=== PATIENT | female | born 1960 | race Caucasian/White ===

== ENCOUNTER → 2020-05-03 | Outpatient (CLI) | payer OTHER ==
--- NOTE | 2020-05-04 19:38 | Diagnostic Imaging Report ---
EXAM: Digital mammogram bilateral screening COMPARISON: This study was compared to the prior exam of 01/10/2019. There are no current complaints. FINDINGS: The breasts are predominantly fatty. When compared to the prior study, there has been no significant change. There is no primary or secondary sign of malignancy noted. IMPRESSION: 1. There is no evidence for malignancy. 2. The patient should have her annual bilateral screening mammogram on schedule in April 2021. ACR BI-RADS Category 1: Negative. Result letter will be mailed to the patient. Note: At least 10% of breast cancer is not imaged by mammography. Dictated by: Dictated on workstation # [id number]
== END ==
LOC: RAD 11:00
PROVIDERS: ATTEND Obstetrics & Gynecology
DX: Z12.31 Encounter for screening mammogram for malignant neoplasm of breast (principal)
CPT/HCPCS: 77063; 77067

== ENCOUNTER → 2020-07-30 | Outpatient (CLI) | payer BC | LOC: CARD 14:00 | PROVIDERS: ATTEND Internal Medicine Cardiovascular Disease | DX: R00.2 Palpitations (principal) | CPT/HCPCS: 93306 ==

== ENCOUNTER → 2020-08-16 | Outpatient (CLI) | payer BC ==
[~2020-08-16] VITALS: Ht 167 cm; Wt 84.0 kg
[~2020-08-16] MED LIST: REGADENOSON 0.4 MG/5 ML SYR (LEXISCAN) IV ONE
[2020-08-16] MEDS: CATHETER FLUSH 10 ML SYR IV PRN ×2 (07:59→09:12)
[2020-08-16 09:11] VITALS: BP 137/78
--- NOTE | 2020-08-16 11:45 | Cardiology Stress Test Report ---
Stress Test Report Date of Procedure/Referring: Date of Procedure: Aug 16, 2020 PCP Dede Frost MD Admitting Physician Salud Ventura DO Indications: Palpitation Baseline Heart Rate: 65 Baseline Blood Pressure: Blood Pressure Systolic: 137 Blood Pressure Diastolic: 78 Baseline Vitals Vital Signs Date Time Temp Pulse Resp B/P (MAP) Pulse Ox O2 Delivery O2 Flow Rate FiO2 08/16/20 09:11 5 137/78 (97) 98 Baseline EKG: Baseline EKG: NSR Summary After explaining the procedure to the patient, she signed a consent and then brought to the stress nuclear laboratory. Patient received 0.4 mg Lexiscan for stress test, ECG, heart rate and blood pressure were monitored continuously. Resting and stress dose of radio tracer were injected, imaging was acquired and reviewed in short axis, horizontal long axis and vertical long axis views. TID: 1.02 SSS: 3 SDS: 2 EF: 62 1. Patient tolerated Lexiscan well 2. Breast attenuation with no significant ischemia or infarction on SPECT images 3. Normal left ventricular size, EF 62 percent DEDE FROST MD Aug 16, 2020 11:45
== END ==
LOC: CARD 08:00
PROVIDERS: ATTEND Internal Medicine Cardiovascular Disease
DX: R00.2 Palpitations (principal)
CPT/HCPCS: 78452; 93017; A9502

== ENCOUNTER → 2021-05-13 | Outpatient (CLI) | payer MEDICARE ==
[~2021-05-13] MED LIST changes: +CATHETER FLUSH 10 ML SYR IV PRN; +HOLD METFORMIN - RECEIVED CONTRAST 20 ML VIAL IV SCH; +IOHEXOL 350 MG/ML 150 ML (OMNIPAQUE 350) VIAL IV ONE; +NS 100 ML (IVPB) BAG IV ONE; -REGADENOSON 0.4 MG/5 ML SYR (LEXISCAN) IV ONE
[2021-05-13 09:53] LABS: CREATININE SERUM 0.76 MG/DL (0.60-1.30)
--- NOTE | 2021-05-13 16:54 | Diagnostic Imaging Report ---
INDICATION: Peripheral vascular disease. TECHNIQUE: CTA of the aorta and lower extremities was performed with IV contrast bolus and axial slices and sagittal and coronal MIP reconstructions. Dose reduction protocol was used. COMPARISON: There is no prior study for comparison. FINDINGS: The visualized portions of the lung bases are clear. There were no pleural fluid collections. There is no free intraperitoneal air. The liver and gallbladder appear unremarkable. The spleen, adrenals, and pancreas are normal. Kidneys bilaterally are unremarkable. There is no retroperitoneal mass or adenopathy. There is no ascites or abnormal fluid collection. Visualized bowel loops appear unremarkable. CTA images demonstrate the abdominal aorta to be patent; there is some peripheral plaquing in the aorta but no evidence of aneurysm or dissection. There does not appear to be significant aortic stenosis. The celiac trunk and SMA are patent and without stenosis. There is minor plaquing in the renal arteries, without significant stenosis. The inferior mesenteric artery is patent. On the left side, there is plaquing in the common iliac artery with high-grade stenosis in its mid portion. The left internal and external iliac arteries are patent with diffuse plaquing in the external iliac with about 40-50% diameter stenosis. The right common iliac artery shows diffuse plaquing with high-grade stenosis at its origin of greater than 80%. The right internal and external iliac arteries are patent; there is some plaquing in the right external iliac artery proximally, but this does not cause significant narrowing. The common femoral arteries show posterior plaquing on both sides with less than 50% diameter stenosis. The profunda femoris arteries are patent on both sides. The SFA is patent on both sides with some areas of minor plaquing, but no significant SFA stenosis was seen. Popliteal arteries are patent on both sides and without significant stenosis. Trifurcations are patent. The anterior tibial arteries and peroneal arteries on both sides appear patent. The posterior tibial artery on the left side is patent, and the posterior tibial artery on the right side is occluded throughout. IMPRESSION: Peripheral vascular disease as described above. There is plaquing in the aorta without evidence of significant aortic stenosis. There is extensive calcified plaquing in the common iliac arteries on both sides with high-grade stenosis of the right common iliac origin and of the left common iliac artery at its mid portion. There is moderate plaquing in the external iliac arteries and common femoral arteries without high-grade stenosis. There is minor plaquing in the SFAs on both sides. The right posterior tibial artery is occluded. There are no other significant incidental findings. Dictated by: Dictated on workstation # [id number]
== END ==
LOC: RAD 10:15
PROVIDERS: ATTEND Internal Medicine Cardiovascular Disease
DX: I70.0 Atherosclerosis of aorta (principal); I70.8 Atherosclerosis of other arteries; I70.213 Atherosclerosis of native arteries of extremities with intermittent claudication, bilateral legs
CPT/HCPCS: 36415; 82565; 84520

== ENCOUNTER 2021-06-03 09:00 | Day surgery (SDC) | payer MEDICARE ==
[~2021-06-03] VITALS: Ht 167.6 cm; Wt 91.8 kg
[2021-06-03] VITALS (22 sets, daily range): BP systolic 108–153; BP diastolic 42–78
[2021-06-03] MEDS: NS IV 1000 ML 1,000 ML IV SCH ×4 (07:20→19:45)
[2021-06-03 07:25] LABS: HEMATOCRIT 43 % (35-52); HEMOGLOBIN 14.3 g/dL (11.5-16.0); MEAN CORPUSCULAR HEMOGLOBIN 33 pg (25-34); MEAN CORPUSCULAR HGB CONC 33 g/dL (32-36); MEAN CORPUSCULAR VOLUME 101 fL (80-99); MEAN PLATELET VOLUME 9.3 fL (9.0-12.2); PLATELET COUNT 226 10^3/uL (130-400); WHITE BLOOD COUNT 5.2 10^3/uL (4.3-11.0)
--- NOTE | 2021-06-03 07:26 | Diagnostic Imaging Report ---
INDICATION: Shortness of breath COMPARISONS: None FINDINGS: Single view of the chest shows normal heart, pulmonary vasculature, pleura and diaphragms. No focal opacities. Soft tissues and bony thorax are normal. IMPRESSION: No acute cardiopulmonary changes. Dictated by: Dictated on workstation # [id number]
[2021-06-03 07:37] LABS: INR 0.8 (0.8-1.4); PROTHROMBIN TIME PATIENT 11.7 SEC (12.2-14.7)
[2021-06-03 07:57] LABS: ALBUMIN 4.2 GM/DL (3.2-4.5); BILIRUBIN,TOTAL 0.4 MG/DL (0.1-1.0); CALCIUM 9.4 MG/DL (8.5-10.1); CREATININE SERUM 0.7 MG/DL (0.60-1.30); POTASSIUM 3.9 MMOL/L (3.6-5.0); TOTAL PROTEIN 7.6 GM/DL (6.4-8.2)
[~2021-06-03 09:00] MED LIST changes: +ACET325T38 PO; +ALPR0.5T7 PO; +ASPI-1238 PO; -CATHETER FLUSH 10 ML SYR IV PRN; +CLOP75TA28 PO; +ESTR0.5T3 PO; +FISH OIL PO; +HEParin (CATH LAB) 2,000 ML IV ONE; -HOLD METFORMIN - RECEIVED CONTRAST 20 ML VIAL IV SCH; -IOHEXOL 350 MG/ML 150 ML (OMNIPAQUE 350) VIAL IV ONE; +LIDOCAINE 1% INJ 20 ML 20 ML VIAL ONE; +LOVA20TA2 PO; +MIDAZOLAM 5 MG/5 ML (VERSED) VIAL ONE; +NIFE-25 PO; -NS 100 ML (IVPB) BAG IV ONE; +NS IV 1000 ML 1,000 ML ONE; +OMG1KC PO; +[UNRECOGNIZED DRUG - CODE] PO; +fentaNYL INJ 100 MCG/2 ML AMP ONE
[2021-06-03] MEDS ORDERED: NITRO DRIP 25000 MCG/D5W 0 ML IV ONE (09:03)
[2021-06-03] MEDS ORDERED: HEParin 1000 UNIT/ML (10ML VIAL) FOR BOLUS ONE (09:03)
--- NOTE | 2021-06-03 09:41 | Conscious Sedation/ASA ---
Conscious Sedation Pre-Proced Time 08:00 ASA Score 3 For ASA 3 and 4: Consider anesthesia and medical clearance. Also, for patients with a history of failed moderate sedation consider anesthesia. Airway Lungs Heart ASA score ASA 1: a normal healthy patient ASA 2: a patient with a mild systemic disease (mid diabetes, controlled hypertension, obesity x ASA 3: a patient with a severe systemic disease that limits activity (angina, COPD, prior Myocardial infarction) ASA 4: a patient with an incapacitating disease that is a constant threat to life (CHF, renal failure) ASA 5: a moribund patient not expected to survive 24 hrs. (ruptured aneurysm) ASA 6: a declared brain- patient whose organs are being harvested. For emergent operations, add the letter E after the classification Mallampati Classification Grade 3 Sedation Plan Analgesia, Amnesia, Plan communicated to team members, Discussed options with patient/fam, Discussed risks with patient/fam The patient is an appropriate candidate to undergo the planned procedure, sedation, and anesthesia. The patient immediately re-assessed prior to indication. DEDE SMITH MD Jun 03, 2021 09:40
[2021-06-03] MEDS ORDERED: CLOPIDOGREL 300 MG (PLAVIX) TABLET PO ONE (09:43)
[2021-06-03] MEDS ORDERED: ASPIRIN 325 MG (5 GR) TABLET ONE (09:43)
[2021-06-03] MEDS ORDERED: PATIENT MAY USE OWN MEDS, ALL PO SCH (09:45)
--- NOTE | 2021-06-03 09:50 | Peripheral Report ---
Peripheral Report Physician (s)/Automation Qa Lead (s) Physician DEDE SMITH MD Pre-Procedure Diagnosis Pre-Procedure Diagnosis: Peripheral arterial disease Post-Procedure Note Procedure Start Date: Jun 03, 2021 Name of Procedure: Catheter placement in the abdominal aorta Selective bilateral lower extremities runoff Kissing bilateral iliac stent deployment Findings/Procedure Note PROCEDURE NOTE: 61-year-old lady with a history of radiation to the pelvic area, has been having claudication, underwent CT angiogram of her lower extremities which showed severe bilateral iliac stenosis. She was scheduled for peripheral angiogram possible angioplasty. After explaining the procedure to the patient, all pros and cons were explained, all questions were answered. The patient signed the consent and then she was placed on the cardiac catheterization laboratory. The patient was placed on the cardiac catheterization laboratory. Groin was prepped SL fashion local anesthesia was used. Sheath placed in the right femoral artery, I was unable to advance the J-wire through the iliac artery I used a S torq wire and was able to cross the lesion then pigtail catheter was placed in the lower abdominal aorta just above the bifurcation and I did angiogram to the bifurcation which showed severe bilateral iliac stenosis. Then I did the runoff to the right lower extremity through the sheath. Then I prepped the left groin and placed a 6 [place] sheath at the left femoral artery. And I had difficulty advancing the wire through the iliac artery on the left also due to heavy calcification and obstructive disease. I used a Storq wire then I used kissing balloon using bilateral [place] balloon 6 x 80 on the left and 6 x 60 on the right. After one inflation I proceeded with deployment of bilateral kissing Omnilink Elite stent 7 x 39. Stent deployed at nominal, the pigtail was placed back in the abdominal aorta and abdominal aortogram was done in 2 phases and reevaluated the area and appeared to have significant improvement. At the end of the procedure both sheaths were removed and closure device deployed. During the procedure there were an Omnilink stent 7 x 59 was introduced and I felt that it was too long and I removed it without deploying it and at the beginning of the procedure I used [place] 6 x 100 balloon and I felt that it was too long and I did not deploy or use that balloon but it was introduced in the iliac artery. FINDINGS: Right lower extremity: Severe right common iliac stenosis, heavily calcified, mild to moderate disease in the common femoral artery and good flow down to the trifurcation with no obstructive disease in the SFA, popliteal artery or below the knee. Left lower extremity: Heavily calcified artery with severe iliac stenosis, moderate disease in the common femoral artery then with the runoff down to the trifurcation there was mild disease in the left SFA and good flow in the arteries below the knee. Post deployment of Omnilink kissing stent, angiogram showed excellent result with excellent flow with no obstructive disease CONCLUSIONS: 1. Severe bilateral iliac stenosis, heavily calcified successful balloon angioplasty then deployment of kissing iliac stents bilaterally 7x39 Omnilink Elite with excellent results 2. Mild disease in the SFA with nonobstructive disease down to the trifurcation bilaterally DISCUSSION AND RECOMMENDATIONS: Continue on aspirin and Plavix, continue on statin. Follow-up as an outpatient Anesthesia Type: Conscious Sedation Estimated blood loss (mL): 35 ml Contrast Amount: 50 ml Total Radiation Dose: 377 mGy Post-Procedure Diagnosis Post-operative diagnosis: Claudication Peripheral arterial disease Hypertension Hyperlipidemia DEDE SMITH MD Jun 03, 2021 09:50
[2021-06-03] MEDS ORDERED: PANT40SU PO (09:51)
--- NOTE | 2021-06-03 09:52 | Discharge Inst-Post CATH ---
Discharge Inst-CATH/EP Problems Reviewed?: Yes Post Cardiac Cath/EP D/C Inst Follow Up/Plan Appointment with Dr. Frost's office in 2 to 4 weeks <b>CARDIAC CATH/EP PROCEDURE DISCHARGE INSTRUCTIONS</b> ACTIVITY * Go Home directly and rest. * Limit activity of the leg (or wrist if it was used) for 7 days including aer obics, swimming, jogging, bicycling, etc. * Restrict stair-climbing for 7 days if possible, if not, climb up with your non-cath leg, then bring together on the same step. * Avoid lifting, pushing, pulling or excessive movement of the affected extremi ty for 7 days. * Customary sexual activity may be resumed after 2 days-use caution not to use a position that strains or causes pain to the affected extremity. * No driving for 24 hours. * NO SMOKING. * Avoid straining for bowel movements for 7 days. * Gentle walking on level ground is allowed. * Returning to work will depend on the type of procedure and the results. Your doctor will discuss this with you. CALL YOUR DOCTOR FOR ANY OF THE FOLLOWING: *If bleeding from the puncture site occurs- Apply gentle pressure to site with clean cloth and call your doctor or EMS. * If a knot or lump forms under the skin, increases in size, or causes pain. * If bruising appears to be worsening or moving further down your leg instead of disappearing. * Temperature above 101 F. CARE OF YOUR GROIN INCISION; * Bruising or purple discoloration of the skin near the puncture site is common. * You may shower only, no bathtub bathing for 5 days. Be careful to avoid slipping as your leg may feel stiff. * If a closure device was used on your femoral artery, please see the attached guide regarding care of the device and your leg. * Leave dressing on FOR 24 hours. CARE OF YOUR WRIST INCISION; * Bruising or purple discoloration of the skin near the puncture site is common. * You may shower. * DO NOT submerge wrist. * Leave dressing on FOR 24 hours. DEDE FROST MD Jun 03, 2021 09:52
[2021-06-03] MEDS: ACETAMINOPHEN 325 MG TABLET PO PRN ×2 (16:27→21:42)
[2021-06-03] MEDS ORDERED: ASPIRIN E.C. 81 MG (ECOTRIN) TAB PO SCH (21:00)
[2021-06-03] MEDS ORDERED: ALPRAZolam 0.5 MG (XANAX) TAB PO SCH (21:00)
[2021-06-03] MEDS ORDERED: FISH OIL 2000 MG PO SCH (21:00)
[2021-06-03] MEDS ORDERED: CLOPIDOGREL 75 MG (PLAVIX) TABLET PO SCH (21:00)
[2021-06-03] MEDS ORDERED: MECOBALAMIN 5000 MCG PO SCH (21:00)
[2021-06-03] MEDS ORDERED: NIFEdipine ER 30 MG (PROCARDIA XL) TAB PO SCH (21:00)
[2021-06-03] MEDS ORDERED: NON-FORMULARY MEDICATION 1 EA EA (Lovastatin 40 MG) PO SCH (21:00)
[2021-06-03] MEDS ORDERED: SIMvastatin 20 MG (ZOCOR) TAB PO SCH (21:00)
[2021-06-03] MEDS ORDERED: NON-FORMULARY MEDICATION 1 EA EA (Estradiol (Estrace Tablet) 0.5 MG) PO SCH (21:00)
[2021-06-03] MEDS ORDERED: OMEGA 3 (FISH OIL) 1000 MG CAP PO SCH (21:00)
[2021-06-03] MEDS ORDERED: ESTRADIOL 1 MG TAB (ESTRACE) PO SCH (21:00)
[2021-06-04] VITALS: BP 133/87
[2021-06-04] MEDS: NS IV 1000 ML 1,000 ML IV SCH ×2 (03:00→05:45)
[2021-06-04 04:00] VITALS: BP 121/75
[2021-06-04 08:00] VITALS: BP 131/64
--- NOTE | 2021-06-04 09:11 | Discharge Summary ---
Diagnosis/Chief Complaint Date of Admission 06/03/2021 Date of Discharge 05/27/2021 Discharge Date: Jun 04, 2021 Discharge Time: 10:00 Admission Diagnosis Admission Diagnosis Claudication Discharge Diagnosis Peripheral arterial disease with claudication. Status post bilateral iliac artery stents. Primary hypertension. Mixed hyperlipidemia. Obesity. BMI 33. Reason Hospital Visit Claudication. Discharge Summary Hospital Course Was the Problem List Reviewed?: Yes Hospital Course See discussion below. Labs Laboratory Tests 06/03/21 07:17: Mean Corpuscular Volume 101H, Prothrombin Time 11.7L, Cholesterol Level 217H, HDL Cholesterol 94H Procedures Peripheral angiogram with stenting. Discharge Physical Examination Allergies: Coded Allergies: No Known Drug Allergies (Unverified , 08/16/20) Vitals & I&Os Vital Signs Date Time Temp Pulse Resp B/P (MAP) Pulse Ox O2 Delivery O2 Flow Rate FiO2 06/04/21 08:00 36.0 79 18 131/64 (86) 95 Room Air General: Alert. No acute distress. She is obese. Eye: No xanthelasma. HENT: Normocephalic. Neck: Jugular venous pressure does not appear elevated. Respiratory: Lungs are clear to auscultation. Respirations are non-labored. Breath sounds are equal. Symmetrical chest wall expansion. Cardiovascular: Normal rate. Regular rhythm. No murmur. No gallop. No edema. Gastrointestinal: Soft. Normal bowel sounds. Skin: Warm. Dry. Neurologic: Alert and oriented to person, place, time. Cranial nerves 3-11 grossly intact. Psychiatric: Cooperative. Appropriate mood & affect. Discussion & Recommendations She presented to the hospital for outpatient peripheral angiogram. She was found to have severe bilateral disease of the iliac arteries and received stents. The following day she was doing well without any claudication. She denied chest discomfort, dyspnea, palpitations, syncope, or lower extremity edema. Her bilateral femoral arterial access sites were without ecchymoses or hematoma. She was discharged home on her previous outpatient medications. She is scheduled for a follow-up in our office in the next couple of weeks with Dr. Frost. Certain portions of this document may have been dictated utilizing voice recognition technology. Inherent to this technology, typographical and grammatical errors may exist. As much as I am diligent to identify and correct these mistakes, some errors may remain in the document. Discharge Home Medications Reviewed and agree with Discharge Medication list on patient's Discharge Instruction sheet Condition at Discharge Improved. Instructions to Patient/Family Please see electronic discharge instructions given to patient. Clinical Quality Measures End of Life/Advance Care Plan: Advance Care discuss with: patient Admission Status Admission Status: Other (Same Day Surgery) DVT/VTE Risk/Contraindication: VTE Addressed: Yes VTE Present on Admission: No MARGARITO VEGA JR, MD Jun 04, 2021 09:11
--- OUTSIDE RECORDS SUMMARY | 2021-06-06 10:56 | XMS REPORT | CCD ---
Author Sydnie Odraz Organization Yanna Zarco MD, [facility] Address [address] [place] [address] Phone Care Team Providers Care It Security Administrator Name Role Phone PP Unavailable CCM Unavailable Summary Purpose Interface Exchange Insurance Providers Payer name Policy type / Coverage type Covered libertarian ID Effective Begin Date Effective End Date [place] [employer] [facility] Blue Cross/[facility] [id number] Unknown Unknown Family history Mother Diagnosis Age At Onset No Known Diseases N/A Father Diagnosis Age At Onset No Known Diseases N/A Social History Social History Element Codes Description Effective Dates Marital status Unknown 200807/19/2020 Number of children Unknown 1 adopted a baby in [place]307/19/2020 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/[address]: 5387776 Quit less than 5 years ago Alcohol history Unknown occasionally drinks alcohol wine 07/19/2020 Allergies, Adverse Reactions, Alerts Substance Reaction Codes Entered Date Inactivated Date Status CODEINE headache, Unknown 07/19/2020 No Inactive Date Active hydrocodone headache Unknown 07/19/2020 No Inactive Date Active Problems Condition Codes Effective Dates Condition Status Cancer Unknown 07/19/2020 Active Hyperlipidemia Unknown 07/19/2020 Active Hypothryroidism Unknown 07/19/2020 Active Lymphedema Unknown 07/19/2020 Active Generalized anxiety disorder ICD-10: F41.1 ICD-9: 300.00 07/19/2020 Active Hypothyroidism, unspecified ICD-10: E03.9 ICD-9: 244.9 07/19/2020 Active Mixed hyperlipidemia ICD-10: E78.2 ICD-9: 272.4 07/19/2020 Active Medications Medication Codes Instructions Start Date Stop Date Status Fill Instructions alprazolam 0.5 mg tablet RxNorm: 266561 TAKE 3 TABLETS BY MOUTH AT BEDTIME 04/19/2021 05/18/2021 Active alprazolam 0.5 mg tablet RxNorm: 115940 TAKE 3 TABLETS BY MOUTH AT BEDTIME 03/22/2021 03/22/2021 Inactive alprazolam 0.5 mg tablet RxNorm: 635050 TAKE 3 TABLETS BY MOUTH AT BEDTIME 12/29/2020 01/27/2021 Inactive alprazolam 0.5 mg tablet RxNorm: 684156 TAKE 3 TABLETS BY MOUTH AT BEDTIME 12/27/2020 12/27/2020 Inactive alprazolam 0.5 mg tablet RxNorm: 780028 TAKE 3 TABLETS BY MOUTH AT BEDTIME 12/27/2020 12/28/2020 Inactive alprazolam 0.5 mg tablet RxNorm: 939806 TAKE 3 TABLETS BY MOUTH AT BEDTIME 11/25/2020 12/26/2020 Inactive alprazolam 0.5 mg tablet RxNorm: 127734 TAKE 3 TABLETS BY MOUTH ONCE DAILY EVERY NIGHT AT BEDTIME 10/22/2020 11/24/2020 Inactive Zithromax 250 mg tablet RxNorm: 419785 1 Tablet(s) Oral as directed 10/01/2020 09/30/2020 Inactive zpack x 1 Zithromax 250 mg tablet RxNorm: 369853 1 Tablet(s) Oral as directed 10/01/2020 10/06/2020 Inactive zpack x 1 prednisone 20 mg tablet RxNorm: 209674 1 Tablet(s) Oral two tatyana es a day 10/01/2020 10/06/2020 Inactive prednisone 20 mg tablet RxNorm: 196519 1 Tablet(s) Oral two tatyana es a day 10/01/2020 09/30/2020 Inactive alprazolam 0.5 mg tablet RxNorm: 054085 TAKE 3 TABLETS BY MOUTH ONCE DAILY AT NIGHT AT BEDTIME 09/21/2020 10/21/2020 Inactive alprazolam 0.5 mg tablet RxNorm: 635479 TAKE 3 TABLETS BY MOUTH ONCE DAILY AT NIGHT AT BEDTIME 08/26/2020 09/20/2020 Inactive Euthyrox 75 mcg tablet RxNorm: 570416 1 Tablet(s) Oral every mornin g 07/19/2020 12/16/2020 Inactive lovastatin 20 mg tablet RxNorm: 690316 2 Tablet(s) Oral every day 0 07/19/2020 01/15/2021 Inactive hold until refill needed Aspirin Low Dose 81 mg tablet,delayed release RxNorm: 626978 1 Tablet(s) Oral every day 07/19/2020 No Stop Date Active Zomig 2.5 mg tablet RxNorm: 977252 1 Tablet(s) Oral as needed 07/19 No Stop Date Active Procardia XL 30 mg tablet,extended release RxNorm: 723907 1 Tablet(s) Oral every day 07/19/2020 No Stop Date Active Plavix 75 mg tablet RxNorm: 237725 1 Tablet(s) Oral every day 07/1901/15/2021 Inactive hold until refills needed estradiol 0.5 mg tablet RxNorm: 181278 1 Tablet(s) Oral every day 0 07/19/2020 No Stop Date Active alprazolam 1 mg tablet RxNorm: 209967 1.5 Tablet(s) Oral every night at bedtime 07/19/2020 07/18/2020 Inactive lovastatin 40 mg tablet RxNorm: 175434 1 Tablet(s) Oral every day 0 07/19/2020 07/18/2020 Inactive hold until refill needed Plavix 75 mg tablet RxNorm: 726183 1 Tablet(s) Oral every day 07/1907/18/2020 Inactive lovastatin 40 mg tablet RxNorm: 692470 1 Tablet(s) Oral every day 0 07/19/2020 07/18/2020 Inactive alprazolam 0.5 mg tablet RxNorm: 273209 3 Tablet(s) Oral every night at bedtime 07/19/2020 08/25/2020 Inactive Euthyrox 75 mcg tablet RxNorm: 298873 1 Tablet(s) Oral every mornin g 07/19/2020 07/18/2020 Inactive Medication Administered No Medication Administered data Immunizations Vaccine Codes Date Status Influenza CVX: 135 04/15/2020 Pneumococcal Unknown 04/15/2019 Results No Results data Procedures No Procedures data Vital Signs Date Vital 07/19/2020 Blood Pressure 1: 138/76 Code: 8480-6 BMI: 30.5 Code: 94227-0 Heart Rate 1: 77 bpm Height: 5'6" Code: 8302-2 SpO2: 97% Temperature: 3 6.7 (C) / 98.0 (F) Weight: 189 lbs Code: 21323-9 Functional Status No Functional Status data Reason For Visit Reason For Visit Effective Dates Notes edema 07/19/2020 Encounters Encounter Performer Location Codes Date OFFICE VISIT, NEW - LEVEL 3 Diagnosis: Hypothyroidism, unspecified[ICD10: E03.9] Diagnosis: Generalized anxiety disorder[ICD10: F41.1] Diagnosis: Mixed hyperlipidemia[ICD10: E78.2] [facility] CPT-4: 16914 07/19/2020 Plan of Care Planned Activity Notes Codes Status Date Patient Education: Patient Medication Summary Completed 12/29/2020 Visit Plan: Hypothyroidism - pt with chr onic hypothyroidism, continue with current medication, will monitor pt for signs or symptoms of lack of adequate supplementation. Pt is to continue with current dose of medication unless directed otherwise. Check labs at regular intervals q 3 months or q 6 months based on previous levels of control. Hyperlipidemia- refill statin - patient to see Dr Frost to establish care next week. Chronic Depression and anxiety - the pt has symptoms of chronic anxiety and depression that have been fairly well controlled since the last office visit. The pt has expected periods of exacerb ation with abatement of the symptoms with change in situational exposure. No change in current medications. 07/19/2020 Appointment: Luciana Nunes WPtel: [address] [place], [place] [id number] New Patient 07/19/2020 Patient Education: Patient Medication Summary Completed 07/19/2020 Instructions Comment . Hypothyroidism - pt with chronic hypot hyroidism, continue with current medication, will monitor pt for signs or symptoms of lack of adequate supplementation. Pt is to continue with current dose of medication unless directed otherwise. Check labs at regular intervals q 3 months or q 6 months based on previous levels of control. Hyperlipidemia- refill statin - patient to see Dr Frost to establish care next week. Chronic Depression and anxiety - the pt has symptoms of chronic anxiety and depression that have been fairly well controlled since the last office visit. The pt has expected periods of exacerbation with abatement of the symptoms with change in situational exposure. No change in current medications. Medical Equipment No Medical Equipment data Health Concerns Section Health Concerns data not found Goals Section Goals data not found Interventions Section Interventions data not found Health Status Evaluations/Outcomes Section Health Status Evaluations/Outcomes data not found Advance Directives No Advance Directive data
--- OUTSIDE RECORDS SUMMARY | 2021-06-06 10:56 | XMS REPORT | Clinical Summary ---
Author Author [facility] Organization [facility] Address Unknown Phone Unavailable Care Team Providers Care Senior Strategy Manager Name Role Phone PCP Unavailable Allergies Not on File Medications Not on file Active Problems Not on file Social History Date Tobacco Use Types Packs/Day Years Used Never Assessed Sex Assigned at Date Recorded Not on file Last Filed Vital Signs Not on file Plan of Treatment Not on file Results Not on filefrom Last 3 Months
--- OUTSIDE RECORDS SUMMARY | 2021-06-06 10:56 | XMS REPORT | Clinical Summary ---
Author Author [facility] Organization [facility] Address Unknown Phone Unavailable Care Team Providers Care Electronic Funds Transfer Coordinator Name Role Phone Salud Ventura MD PCP Source Comments Some departments are not documenting in the electronic medical record. If you d o not see the information that you expected, contact Release of Information in [facility] Hotreader Information Management department at [phone] for further assistan ce in locating additional records.[facility] Allergies Comments Active Allergy Reactions Severity Noted Date States gets headache to any "codone" or "odeine" meds like hydrocodone and oxycodone, codeine Codeine HEADACHE Low 06/04/2017 Medications End Date Status Medication Sig Dispensed Refills Start Date Active clopiDOGrel (PLAVIX) 75 Take 75 mg by 0 mg tablet mouth at bedtime daily. Active aspirin EC 81 mg tablet Take 81 mg by 0 mouth at bedtime daily. Take with food. Active ZOLMitriptan (ZOMIG) 2.5 Take 2.5 mg 0 mg tablet by mouth as Needed for Migraine symptoms. Active ALPRAZolam (XANAX) 0.5 mg Take 1.5 mg 0 tablet by mouth at bedtime daily. Active lovastatin(+) (MEVACOR) Take 40 mg by 0 20 mg tablet mouth at bedtime daily. Active NIFEdipine XL (PROCARDIA Take 30 mg by 0 XL) 30 mg tablet mouth at bedtime daily. Active estradiol (ESTRACE) 0.5 Take 0.5 mg 0 mg tablet by mouth at bedtime daily. Active senna/docusate Take 1 tablet 30 tablet 0 (SENOKOT-S) 8.6/50 mg by mouth 7 tablet twice daily. Active silver sulfADIAZINE (SSD) Apply 1 g 30 g 1 1 % topical cream topically to 8 affected area as Needed. Apply to the area after each time you wash the area (about 3 times per day). Active Problems Problem Noted Date Lymphedema of right lower extremity 01/20/2018 Overview: Formatting of this note might be differ ent from the original. Periodic cellulitis. Treated by her PCP , LOI. Malignant neoplasm of vulva 06/03/2017 Cancer Staging: Clinical: Unsigned Pathologic stage from 07/17/2017: FIGO St age IIIC (T1b(m), N2c, cM0) - Signed by Ruthie Ramos MD on 07/17/2017 Overview: Formatting of this note is different fr om the original. 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 REF:Nicole Baires MD PCP: HPI: Ms Villavicencio is a 57 yo who appears to have a long-standing history of chronic vulvar dysplasia since 2002. O B/KILN PUSHER in [place] with available notes dating back to 2012. At that time surg ical treatment was advised however the patient declined. She elected inst ead to be treated with Efudex. She transferred her care to [place] in March 2016 to a new application chemist. At that time she agreed to an every three-month visit with biopsy as needed and to restart using t he Efudex. It is unclear as to how long she been off the Efudex. In December of this year, January 09, 2017, she reported to her application chemist with compl aints of a painful hard nodule with drainage on the vulvar. Culture was co llected. A follow-up visit was performed on May 10, 2017 and while it was clear there was an abscess on the vulva there appeared to be a les ion on the left anterior labia as well at that time she refused to KILN PUSHER on cology visit as well as a biopsy. However she presented back to her gynec ologist on 2017 and was willing to undergo a KILN PUSHER oncology consu ltation and surgery if necessary. Apparently the patient is no longer abl e to tolerate the symptoms of the lesion as it is now seeping, oozing, bl eeding and apparently has gotten larger. She is now being referred to my office. In reviewing Dr. Baires's note dated 05/17 the patient states that "she thinks she needs surgery". She states that "the area is gotten bigger, seeds and oozes. Sometimes there are f lecks of blood. Has not had antibiotics since January. No troubles ur inating or bowel movements." She appears to be ready for something more she has been opposed to more surgery due to personal issues such as care for animals at home and inability to be off work enough for surgery and hospita l stay. She continues to treat the area near the clitoris stating is not b chidi and now worse than treated it for secondary infection and that is anne marie griffin states that the air is now open and draining and painful and that it fe els harder than before apparently she is not interested in going back to [place] is a surgeon there is told her he will do the complete surgery, if she needs surgery around the anus to the warts, that she has to take care of that on her own. On exam she has had a suspicious lesion on the left anterior labia that was initially infected and abscess. Th e abscess has resolved with the lesion remains. She suspects invasive cancer. Her last note from [place] is dated 2012. In this note they state she has a history of lower genital dysplasi a. The patient has very significant changes over large portion of the vulva . The patient was seen and surgery was recommended because serious a large and severely dysplastic, invasion cannot be ruled out. She has been karen suzette with Efudex, since she refuses surgical approach. On exam there are l arge areas of severe dysplasia that are most significant in the periclitora l and posterior vestibular areas. There is a thickened indurated area pos teriorly which is concerning. TREATMENT: 1. 06/26/2017: Radical vulvectomy, inc luding removal of disease from the perianal region with bilateral inguinal LNDissection. Final pathology: "left inguinal lymph n ode", dissection: Metastatic squamous cell carcinoma with extra augusto l extension in one lymph node. (07/21) . "right inguinal lymph node", biopsy: Metastatic squamous cell carcinoma in one lymph no de. (07/18) vulvectomy: Invasive moderately to poor ly differentiated squamous cell carcinoma arising from high-grade squam ous intraepithelial lesion (VIN3/carcinoma in situ), complete exci sed. High-grade squamous intraepithelial lesion (AIN2-3), comple tely excised noted at the perianal region. Margins were good, with closes t one at 9 mm, fixed tissue. 2. Presented at tumor board on 07/05/20 17. Recommendations are for chemoradiation, including bilateral omar ins and pelvis. With resection of primary tumor, lower dose to tumor bed. 3. Treated at [facility]; TD: 5940 cGy in 33 fractions. Started 08/08/2017 and ended 09/25/2017. Got 5040 cGy WP and 900 vulvar boost. 4. 10/15/2017: last visit; seen by NP. [place] urbina for exam following completion of chemo/radiation therapy p er Drs. Hinojosa and Keeley. Aware we will continue with surveillanc e visits q 3 months x 2 years and then q 6 months. Advised to notify wit h symptoms 5. 01/17/2018: Presents for her 3 month visit; she is now 4 months from end of therapy. Have they obtained a CT Sc an? If not will need an end of treatment scan. OLDER RECORDS: Pathology: 1. None recent 2. 09/30/2007 skin, perianal biopsy: Se bree squamous dysplasia 3. 09/27/2005 vulva, vulvectomy: Squamo us carcinoma in situ, extending to the left posterior vaginal and right mi ddle cutaneous resection margins. Doctor Marvin Munroe, [place], [place] 4. Vulvar biopsy 08/05/[address] Arturo Duran shows severe dysplasia extending to margin 5. Vulvar biopsy 09/24/2002 shows left labial and vulvar carcinoma in situ involving the introitus and the outside edge as well as the bottom margin; right vulva showing squamous cell carci noma in situ involving margins of resection. 6. 10/22/2002 left labia and vulvar lesi on high-grade vulvar intraepithelial neoplasia right vulvar excision high-gr lisa vulvar intraepithelial neoplasia. 7. Pap smear dated 02/20/2008 atypical s quamous cells Radiology/procedures: 1. CT: no 2. Ultrasound: no 3. Other: no PMH: 1. Any history of problems with heart/lung/kidney/liver/hepatitis/DM/th yroid disease/hematologic disorders/DVT: No 2. BMI 22.8 3. Current every day smoker half a pac k per day 4. History of vulvar CIS 5. Clot in her toe; and had digital MEAGN ; now on plavix. 6.?cardiac?HTN: PSH: 1. Hysterectomy 1990 due to endometrio sis 2. D&Cs times multiple 3. Left labial biopsy in 2002 consiste nt with LANA 3 and carcinoma in situ 4. Vulvar biopsy LANA 09/2003 5. Vulvectomy with carcinoma in situ e xtending to the left posterior vaginal right middle cutaneous resectio n margin 6. Perianal biopsy severe squamous dys plasia AUTO BODY ESTIMATOR: 1. 2. Menarche: 12 3. LMP/menopausal:1990 after hysterecto my 4. OCP/ERT/HRT: OCP x 5 years 5. control-current: na 6. STDs: HPV 7. Sexually active: no 8. Fibroids/endometriosis: no/yes 9. If premenopausal, menstrual pattern, normal: na 10. Last pap smear: See above SH: 1. Smoke: daily smoker; / ppd x 12 ye ars 2. Drugs: no 3. ETOH: no 4. Occupation: legal support specialist 5. Marital status: 6. Last colonoscopy: never 7. Last Mammogram: yearly; last in 04/16 016. FH: adopted Resolved Problems Problem Noted Date Resolved Date Wound dehiscence 07/26/2017 01/16/2018 Surgical History Surgery Date Site/Laterality Comments HX HYSTERECTOMY 07/16/1991 - 07/15/1992 SURGERY 07/16/2006 - partial vulvectomy 07/15/2007 LAPAROSCOPY 1980s x 3-4 2/2 endometri osis VULVAR/PERINEAL BIOPSY 06/13/2017 Vulva/Bilateral VULVAR AND PERINEAL BIOPSIES X 10; ANOSCOPY performed by Ruthie Ramos MD at [facility] Medical History Medical History Date Comments Heart disease Sexually transmitted disease Endometriosis Cancer (HCC) Carcinoma in situ of vulva PVD (peripheral vascular disease) (HCC) Hyperlipidemia CVD (cerebrovascular disease) Arthritis Social History Date Tobacco Use Types Packs/Day Years Used Quit: 05/16/2017 Former Smoker Cigarettes 1 40 Smokeless Tobacco: Never Used Tobacco Cessation: Ready to Quit: Yes Comments Alcohol Use Standard Drinks/Week No 0 (1 standard drink = 0.6 o z pure alcohol) Sex Assigned at Date Recorded Not on file Last Filed Vital Signs Reading Time Taken Comments Vital Sign 134/63 04/22/2018 2:30 PM CDT Blood Pressure 60 04/22/2018 2:30 PM CDT Pulse 36.8 C (98.2 F) 04/22/2018 2:30 PM CDT Temperature 18 10/15/2017 11:37 AM CDT Respiratory Rate 99% 04/22/2018 2:30 PM CDT Oxygen Saturation - - Inhaled Oxygen Concentration 66.1 kg (145 lb 12.8 oz) 04/22/2018 2:30 PM CDT Weight 167.6 cm (5' 6") 04/22/2018 2:30 PM CDT Height 23.53 04/22/2018 2:30 PM CDT Body Mass Index Plan of Treatment Health Maintenance Due Date Last Done Comments HIV SCREENING 1974 DTAP/TDAP VACCINES (1 - 1977 Tdap) HEPATITIS C SCREENING 1977 PHYSICAL (COMPREHENSIVE) 1977 EXAM CERVICAL CANCER SCREENING 1980 BREAST CANCER SCREENING 1999 COLORECTAL CANCER 2009 SCREENING SHINGLES RECOMBINANT 2009 VACCINE (1 of 2) INFLUENZA VACCINE 02/13/2021 04/15/2017 (Previously completed), 04/18/2010, 04/19/2009, Additional history exists Results Not on filefrom Last 3 Months Insurance Type Payer Benefit Subscriber ID Effective Phone Address Plan / Dates Group MEDICA MEDICA [id number] 2016-P [phone] [id number] ([place]) [place] [address] Machine Runner Explanation Type Date Recorded Advance Directive/DPOA dpoa Advance 06/04/2017 10:44 AM Directive/DPOA Date Inactivated Comments Code Status Date Activated 06/29/2017 5:21 PM Full Code 06/26/2017 6:27 PM Provider has discussed Code Status No, discussion no t w/Patient or Family? necessary based on Dx Care Teams Start Date End Date Electronic Funds Transfer Coordinator Relationship Specialty 06/04/17 Salud Ventura MD PCP - General Family [address] [place] [address]
== END 2021-06-04 10:30 | disposition home or self-care (01) ==
LOC: CATH 09:00 → CSD 10:09 → CATH 06-04 10:30
PROVIDERS: ATTEND Internal Medicine Cardiovascular Disease
DX: I70.213 Atherosclerosis of native arteries of extremities with intermittent claudication, bilateral legs (principal); I10 Essential (primary) hypertension; E78.2 Mixed hyperlipidemia; E66.9 Obesity, unspecified; F17.210 Nicotine dependence, cigarettes, uncomplicated; E03.9 Hypothyroidism, unspecified; I89.0 Lymphedema, not elsewhere classified; R06.09 Other forms of dyspnea; I65.23 Occlusion and stenosis of bilateral carotid arteries; Z68.33 Body mass index [BMI] 33.0-33.9, adult; Z79.899 Other long term (current) drug therapy; Z79.82 Long term (current) use of aspirin; Z79.02 Long term (current) use of antithrombotics/antiplatelets
CPT/HCPCS: 36200; 37221; 71045; 75716; 80053; 80061; 85027; 85610; 85730; 87081; C1725 ×3; C1760; C1769 ×2; C1876 ×2; C1887; C1894 ×2; 36415

== ENCOUNTER → 2021-07-12 | Outpatient (CLI) | payer MEDICARE ==
[~2021-07-12] MED LIST changes: -HEParin (CATH LAB) 2,000 ML IV ONE; -LIDOCAINE 1% INJ 20 ML 20 ML VIAL ONE; -MIDAZOLAM 5 MG/5 ML (VERSED) VIAL ONE; -NS IV 1000 ML 1,000 ML ONE; +PANT40SU PO; -fentaNYL INJ 100 MCG/2 ML AMP ONE
--- NOTE | 2021-07-12 14:15 | Diagnostic Imaging Report ---
INDICATION: Routine screening. COMPARISON: 05/03/2020 and 10/10/2018. TECHNIQUE: 2D and 3D bilateral screening mammography was performed with CAD. FINDINGS: Scattered fibroglandular densities are identified bilaterally. A benign nodule in the central left breast appears stable. No new mass or malignant-appearing microcalcifications are seen. The axillae are unremarkable. IMPRESSION: No mammographic features suspicious for malignancy are identified. ACR BI-RADS Category 2: Benign findings. Result letter will be mailed to the patient. Note: At least 10% of breast cancer is not imaged by mammography. Dictated by: Dictated on workstation # [id number]
== END ==
LOC: RAD 13:30
PROVIDERS: ATTEND Obstetrics & Gynecology
DX: Z12.31 Encounter for screening mammogram for malignant neoplasm of breast (principal)
CPT/HCPCS: 77063; 77067

== ENCOUNTER → 2021-12-28 | Outpatient (CLI) | payer MEDICARE | LOC: CARD 10:00 | PROVIDERS: ATTEND Physician Assistant | DX: I10 Essential (primary) hypertension (principal) | CPT/HCPCS: 93306 ==

== ENCOUNTER → 2022-01-30 | Outpatient (CLI) | payer MEDICARE ==
[~2022-01-30] MED LIST changes: +CATHETER FLUSH 10 ML SYR IVP PRN; +REGADENOSON 0.4 MG/5 ML SYR (LEXISCAN) IV ONE
[2022-01-30] MEDS: CATHETER FLUSH 10 ML SYR IVP PRN ×3 (07:44→09:10)
[2022-01-30 09:05] VITALS: BP 142/78
--- NOTE | 2022-02-01 10:36 | Cardiology Stress Test Report ---
Stress Test Report Date of Procedure/Referring: Date of Procedure: Jan 30, 2022 PCP Hebert Zarco MD Admitting Physician Admitting Physician: Attending Physician: Kisha Garcia Indications: HTN Baseline Heart Rate: 65 Baseline Blood Pressure: Blood Pressure Systolic: 142 Blood Pressure Diastolic: 78 Baseline Vitals Vital Signs Date Time Temp Pulse Resp B/P (MAP) Pulse Ox O2 Delivery O2 Flow Rate FiO2 01/30/22 09:05 68 20 142/78 (99) 98 Room Air Baseline EKG: Baseline EKG: NSR Summary After explaining the procedure to the patient, she signed a consent and then brought to the stress nuclear laboratory. Patient received 0.4 mg Lexiscan for stress test, ECG, heart rate and blood pressure were monitored continuously. Resting and stress dose of radio tracer were injected, imaging was acquired and reviewed in short axis, horizontal long axis and vertical long axis views. TID: 0.92 SSS: 8 SDS: 8 EF: 60 1. Patient tolerated Lexiscan well 2. Breast attenuation reversible ischemia involving anterior wall, anterior septum, anterior apex 3. Normal left size, ejection fraction 60% Copy Copies To 1: HEBERT ZARCO MD, BASHAR J MD Feb 01, 2022 10:36
== END ==
LOC: CARD 07:45
PROVIDERS: ATTEND Physician Assistant
DX: I10 Essential (primary) hypertension (principal)
CPT/HCPCS: 78452; 93017; A9502

== ENCOUNTER 2022-02-15 08:00 | Day surgery (SDC) | payer MEDICARE ==
[~2022-02-15] VITALS: Ht 167.6 cm; Wt 98.1 kg
[2022-02-15] VITALS (9 sets, daily range): BP systolic 116–145; BP diastolic 52–80
--- NOTE | 2022-02-15 07:25 | Cardiac Procedure Note-CS/ASA ---
Pre-Procedure Note Pre-Op Procedure Note Date of Available H&P: Feb 15, 2022 Date H&P Reviewed: Feb 15, 2022 Time H&P Reviewed: 07:25 History & Physical: H&P Reviewed, Patient Examed, No changes noted Pre-Operative Diagnosis: Peripheral arterial disease, CAD Conscious Sedation Pre-Proced Time 07:25 ASA Score 3 For ASA 3 and 4: Consider anesthesia and medical clearance. Also, for patients with a history of failed moderate sedation consider anesthesia. Airway Lungs Heart ASA score ASA 1: a normal healthy patient ASA 2: a patient with a mild systemic disease (mid diabetes, controlled hypertension, obesity x ASA 3: a patient with a severe systemic disease that limits activity (angina, COPD, prior Myocardial infarction) ASA 4: a patient with an incapacitating disease that is a constant threat to life (CHF, renal failure) ASA 5: a moribund patient not expected to survive 24 hrs. (ruptured aneurysm) ASA 6: a declared brain- patient whose organs are being harvested. For emergent operations, add the letter E after the classification Mallampati Classification Grade 3 Sedation Plan Analgesia, Amnesia, Plan communicated to team members, Discussed options with patient/fam, Discussed risks with patient/fam The patient is an appropriate candidate to undergo the planned procedure, sedation, and anesthesia. The patient immediately re-assessed prior to indication. DEDE SMITH MD Feb 15, 2022 07:25
[2022-02-15 07:44] LABS: BILIRUBIN,URINE NEGATIVE (NEGATIVE); CLARITY,URINE CLOUDY; COLOR,URINE YELLOW; GLUCOSE, URINE (UA) NEGATIVE (NEGATIVE); KETONES,URINE NEGATIVE (NEGATIVE); LEUKOCYTE ESTERASE ,URINE TRACE (NEGATIVE); NITRITE,URINE NEGATIVE (NEGATIVE); PH,URINE 8.5 (5-9); PROTEIN,URINE TRACE (NEGATIVE)
[2022-02-15 07:44] LABS: HEMATOCRIT 42 % (35-52); HEMOGLOBIN 13.5 g/dL (11.5-16.0); MEAN CORPUSCULAR HEMOGLOBIN 33 pg (25-34); MEAN CORPUSCULAR HGB CONC 33 g/dL (32-36); MEAN CORPUSCULAR VOLUME 101 fL (80-99); MEAN PLATELET VOLUME 9.3 fL (9.0-12.2); PLATELET COUNT 243 10^3/uL (130-400); WHITE BLOOD COUNT 4.6 10^3/uL (4.3-11.0)
--- NOTE | 2022-02-15 07:45 | Diagnostic Imaging Report ---
INDICATION: Abnormal stress test. Chest pain. Dyspnea. History of hypertension COMPARISON: 06/03/2021 FINDINGS: Single frontal view of the chest demonstrates normal heart size and pulmonary vascularity. The lungs are well aerated and clear. No large pleural effusion or pneumothorax is seen. The visualized osseous structures show no acute abnormalities. IMPRESSION: 1. No acute cardiopulmonary process. Dictated by: Dictated on workstation # [id number]
[~2022-02-15 08:00] MED LIST changes: +AMLO-250 PO; -CATHETER FLUSH 10 ML SYR IVP PRN; +FURO-125 PO; +HEParin (CATH LAB) 2,000 ML IV ONE; +LIDOCAINE 1% INJ 20 ML VIAL ONE; +NS IV 1000 ML 1,000 ML IV SCH; +NS IV 1000 ML 1,000 ML ONE; +POTA10CA43 PO; -REGADENOSON 0.4 MG/5 ML SYR (LEXISCAN) IV ONE
[2022-02-15] MEDS ORDERED: HEParin 1000 UNIT/ML (10ML VIAL) FOR BOLUS ONE (08:01)
[2022-02-15] MEDS ORDERED: NITRO DRIP 25000 MCG/D5W 250 ML IV ONE (08:01)
[2022-02-15] MEDS ORDERED: MIDAZOLAM 5 MG/5 ML (VERSED) VIAL ONE (08:01)
[2022-02-15] MEDS ORDERED: VERAPAMIL 5 MG/2 ML (CALAN) VIAL IV ONE (08:01)
[2022-02-15] MEDS ORDERED: fentaNYL INJ 100 MCG/2 ML AMP ONE (08:01)
[2022-02-15 08:07] LABS: ALBUMIN 4.1 GM/DL (3.2-4.5); BILIRUBIN,TOTAL 0.4 MG/DL (0.1-1.0); CALCIUM 9.3 MG/DL (8.5-10.1); CREATININE SERUM 0.72 MG/DL (0.60-1.30); POTASSIUM 3.6 MMOL/L (3.6-5.0); TOTAL PROTEIN 7.2 GM/DL (6.4-8.2)
[2022-02-15 08:31] LABS: INR 0.9 (0.8-1.4); PROTHROMBIN TIME PATIENT 12.6 SEC (12.2-14.7)
[2022-02-15 08:37] LABS: BACTERIA,URINE TRACE /HPF; SQUAMOUS EPITHELIAL CELL,UR 0-2 /HPF
--- NOTE | 2022-02-15 08:56 | Discharge Inst-Post CATH ---
Discharge Inst-CATH/EP Problems Reviewed?: Yes Post Cardiac Cath/EP D/C Inst Follow Up/Plan Appointment with Dr. Frost's office in 2 to 4 weeks <b>CARDIAC CATH/EP PROCEDURE DISCHARGE INSTRUCTIONS</b> ACTIVITY * Go Home directly and rest. * Limit activity of the leg (or wrist if it was used) for 7 days including aer obics, swimming, jogging, bicycling, etc. * Restrict stair-climbing for 7 days if possible, if not, climb up with your non-cath leg, then bring together on the same step. * Avoid lifting, pushing, pulling or excessive movement of the affected extremi ty for 7 days. * Customary sexual activity may be resumed after 2 days-use caution not to use a position that strains or causes pain to the affected extremity. * No driving for 24 hours. * NO SMOKING. * Avoid straining for bowel movements for 7 days. * Gentle walking on level ground is allowed. * Returning to work will depend on the type of procedure and the results. Your doctor will discuss this with you. CALL YOUR DOCTOR FOR ANY OF THE FOLLOWING: *If bleeding from the puncture site occurs- Apply gentle pressure to site with clean cloth and call your doctor or EMS. * If a knot or lump forms under the skin, increases in size, or causes pain. * If bruising appears to be worsening or moving further down your leg instead of disappearing. * Temperature above 101 F. CARE OF YOUR GROIN INCISION; * Bruising or purple discoloration of the skin near the puncture site is common. * You may shower only, no bathtub bathing for 5 days. Be careful to avoid slipping as your leg may feel stiff. * If a closure device was used on your femoral artery, please see the attached guide regarding care of the device and your leg. * Leave dressing on FOR 24 hours. CARE OF YOUR WRIST INCISION; * Bruising or purple discoloration of the skin near the puncture site is common. * You may shower. * DO NOT submerge wrist. * Leave dressing on FOR 24 hours. DEDE FROST MD Feb 15, 2022 08:56
[2022-02-15] MEDS ORDERED: NS IV 1000 ML 1,000 ML IV SCH (09:00)
--- NOTE | 2022-02-15 09:22 | Cardiac Cath Report ---
Cardiac Cath Report Physician (s)/Public Works Supervisor (s) Physician DEDE SMITH MD Pre-Procedure Diagnosis Pre-Procedure Diagnosis: Peripheral arterial disease, CAD Post-Procedure Note Procedure Start Date: Feb 15, 2022 Name of Procedure: Left heart catheterization Findings/Procedure Note PROCEDURE NOTE: 61-year-old lady with history of peripheral arterial disease, hypertension hyperlipidemia, had an abnormal stress test with anterior wall ischemia, schedul ed for cardiac catheterization possible PTCA. After explaining the procedure to the patient, all pros and cons were explained, all questions were answered. The patient signed the consent and then she was placed on the cardiac catheterization laboratory. Groin was prepped SL fashion local anesthesia was used. Sheath placed in the right radial artery, Mallory catheter was advanced to the left ventricular cavity, pressure was measured, pullback LV to aorta was done, engage the right and left coronary system, a ngiogram was done. At the end of the procedure the sheath was removed. Vascular band was used FINDINGS: Hemodynamics LV 106/18, end-diastolic pressure of 18 Aorta 101/60 mean of 63 ANATOMY: Left Main is free of obstructive disease Left Anterior Descending has mild disease nonobstructive disease Left Circumflex is dominant artery with mild disease nonobstructive disease Right Coronary Artery is nondominant artery with no obstructive disease LV Gram was not done, pressure was measured CONCLUSION: 1. Mild coronary artery disease nonobstructive disease 2. Normal left ventricular end-diastolic pressure DISCUSSION AND RECOMMENDATION: Abnormal stress test is probably due to extracardiac attenuation, medical therapy recommended no intervention is needed Anesthesia Type: Conscious Sedation Estimated blood loss (mL): 10 ml Contrast Amount: 20 ml Total Radiation Dose: 222 mGy Post-Procedure Diagnosis Post-operative diagnosis: Dyspnea Coronary artery disease Peripheral arterial disease Hypertension DEDE SMITH MD Feb 15, 2022 09:22
== END 2022-02-15 11:30 ==
LOC: CATH 08:00 → SDC 09:17 → CATH 11:30
PROVIDERS: ATTEND Internal Medicine Cardiovascular Disease
DX: I25.10 Atherosclerotic heart disease of native coronary artery without angina pectoris (principal); I73.9 Peripheral vascular disease, unspecified; I10 Essential (primary) hypertension; I89.0 Lymphedema, not elsewhere classified; I65.23 Occlusion and stenosis of bilateral carotid arteries; E78.2 Mixed hyperlipidemia; Z79.82 Long term (current) use of aspirin; Z87.891 Personal history of nicotine dependence
CPT/HCPCS: 71045; 80053; 80061; 81000; 85027; 85610; 85730; 87081; 93005; 93458; C1894; 36415

== ENCOUNTER → 2022-07-13 | Outpatient (CLI) | payer MEDICARE ==
[~2022-07-13] MED LIST changes: -HEParin (CATH LAB) 2,000 ML IV ONE; -LIDOCAINE 1% INJ 20 ML VIAL ONE; -NS IV 1000 ML 1,000 ML IV SCH; -NS IV 1000 ML 1,000 ML ONE
--- NOTE | 2022-07-13 16:17 | Diagnostic Imaging Report ---
Indication: Routine screening. Comparison is made with prior mammograms 07/12/2021 and 05/03/2020. 2-D and 3-D bilateral screening mammography was performed with CAD. Scattered fibroglandular densities are identified bilaterally. Benign nodules on the left are stable. No new mass or malignant-appearing microcalcifications are seen. Axillae are unremarkable. IMPRESSION: BI-RADS Category 2 No mammographic features suspicious for malignancy are identified. ACR BI-RADS Category 2: Benign findings. Result letter will be mailed to the patient. Note: At least 10% of breast cancer is not imaged by mammography. Dictated by: Dictated on workstation # [id number]
== END ==
LOC: RAD 11:20
PROVIDERS: ATTEND Obstetrics & Gynecology
DX: Z12.31 Encounter for screening mammogram for malignant neoplasm of breast (principal)
CPT/HCPCS: 77063; 77067

== ENCOUNTER 2022-11-03 05:31 | Outpatient (CLI) | payer MEDICARE ==
[~2022-11-03] VITALS: Ht 167.7 cm; Wt 91.4 kg
[~2022-11-03 05:31] MED LIST changes: -POTA10CA43 PO; +POTA10CA44 PO
[2022-11-03] MEDS ORDERED: NIFE-25 PO (12:54)
[2022-11-03] MEDS ORDERED: LOSA25TA41 PO (12:54)
[2022-11-03] MEDS ORDERED: FURO-125 PO (12:54)
== END 2022-11-03 13:06 | disposition home or self-care (01) ==
LOC: PREOP 05:31
PROVIDERS: ATTEND Internal Medicine
DX: Z01.818 Encounter for other preprocedural examination (principal)

== ENCOUNTER 2022-11-10 09:18 | Day surgery (SDC) | payer MEDICARE ==
[~2022-11-10] VITALS: Ht 168 cm; Wt 91.4 kg
[~2022-11-10 09:18] MED LIST changes: +LOSA25TA41 PO
[2022-11-10] MEDS ORDERED: LACTATED RINGERS 1,000 ML IV STA (09:20)
[2022-11-10 09:35] VITALS: BP 128/63
--- NOTE | 2022-11-10 10:28 | Pre-Op Note & Conscious Sedat ---
Pre-Operative Progress Note Date H&P Reviewed: Nov 10, 2022 Time H&P Reviewed: 10:27 History & Physical: H&P Reviewed, Patient Examed, No changes noted Pre-Op Diagnosis: positive cologuard Moderate Sedation PreProcedure ASA Score 2 Airway Lungs Heart ASA score ASA 1: a normal healthy patient ASA 2: a patient with a mild systemic disease (mid diabetes, controlled hypertension, obesity ASA 3: a patient with a severe systemic disease that limits activity (angina, COPD, prior Myocardial infarction) ASA 4: a patient with an incapacitating disease that is a constant threat to life (CHF, renal failure) ASA 5: a moribund patient not expected to survive 24 hrs. (ruptured aneurysm) ASA 6: a declared brain- patient whose organs are being harvested. For emergent operations, add the letter E after the classification Mallampati Classification Grade 2 Sedation Plan Analgesia, Amnesia, Plan communicated to team members, Discussed options with patient/fam, Discussed risks with patient/fam The patient is an appropriate candidate to undergo the planned procedure, sedation, and anesthesia. The patient immediately re-assessed prior to indication. NANCY DOZIER MD Nov 10, 2022 10:28
[2022-11-10] MEDS ORDERED: MIDAZOLAM 2 MG/2 ML (VERSED) VIAL ONE (10:49)
[2022-11-10] MEDS ORDERED: PROPOFOL INJECTION 50 ML IV ONE ×2 (10:49→11:12)
[2022-11-10 11:20] VITALS: BP 107/53
[2022-11-10 11:25] VITALS: BP 101/51
[2022-11-10 11:30] VITALS: BP 108/53
--- NOTE | 2022-11-10 11:41 | Progress Note-Post Operative ---
Post-Procedure Note Physician (s)/Locomotive Observer (s) Physician NANCY DOZIER MD Pre-Procedure Diagnosis Pre-Procedure Diagnosis: positive cologuard Post-Procedure Diagnosis Post-operative diagnosis: Prior to undergoing colonoscopy digital rectal evaluation was performed. Anal suture tone was normal and the perianal reflexes intact. No abnormalities noted on digital inspection of the anal canal or distal rectal vault. The colonoscope was then inserted into the rectum and under direct visualization advanced to the cecum. The cecum was identified by identification of the ileocecal valve and cecal strap. Photographic documentation obtained. Careful suction was made as the colonoscope was withdrawn. Quality prep was good. Findings: There was no evidence for internal/external hemorrhoids and the rectum was unremarkable. Present the proximal sigmoid colon were several diverticulum with colonic narrowing. There was no evidence for acute inflammation but findings suggest possible previous diverticulitis with some stricturing I was able to advance the scope into the descending colon. Present at the splenic flexure was a 1 cm sessile adenomatous appearing polyp it was photographed and biopsied and ablated with minimal blood loss. The transverse colon hepatic flexure ascending colon and cecum were unremarkable. A/P 1. One 1 cm sessile adenomatous polyp was removed via hot forceps from the splenic flexure. As long as there are no surprises on histopathology would advocate repeat surveillance colonoscopy in 1 year. Patient had some narrowing in the proximal sigmoid colon associated with diverticulum suggesting possibly past diverticulitis with some colonic narrowing there was no evidence to suggest underlying malignancy. CC: Dr. Yanna COOLEY MD. NANCY DOZIER MD Nov 10, 2022 11:41
[2022-11-10 11:51] VITALS: BP 108/53
--- NOTE | 2022-11-10 12:05 | Anesthesia-General Post-Op ---
MAC Patient Condition Mental Status/LOC: Same as Preop Cardiovascular: Satisfactory Nausea/Vomiting: Absent Respiratory: Satisfactory Pain: Controlled Complications: Absent Post Op Complications Complications None Follow Up Care/Instructions Patient Instructions None needed. Anesthesiology Discharge Order Discharge Order Patient is doing well, no complaints, stable vital signs, no apparent adverse anesthesia problems. No complications reported per nursing. NISHA IBRAHIM CRNA Nov 10, 2022 12:05
--- NOTE | 2022-11-22 13:07 | HISTORY AND PHYSICAL ---
DATE OF SERVICE: 11/10/2022 COLONOSCOPY HISTORY AND PHYSICAL HISTORY OF PRESENT ILLNESS: The patient is a 63-year-old white female referred by Dr. Zarco for diagnostic colonoscopy due to a positive Cologuard. She has not had any other previous form of colonoscopic screening including colonoscopy. She reports some occasional bright red blood per rectum that has been no different than usual for her that she has attributed to hemorrhoids. She has had no abdominal pain, change in weight or change in bowel habit. 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 Radiation therapy was complicated by some lymphedema bilaterally as well as peripheral vascular disease, felt to be secondary to radiation therapy. She sees Dr. Frost for this. PAST MEDICAL HISTORY: Also significant for hypertension and overweight status. She also had an embolic event to her right fifth toe 20 years ago and had been on low-dose aspirin, Plavix and lovastatin since. She has had no subsequent vascular issues since bilateral femoral artery stenting. She has no known history of coronary disease. SOCIAL HISTORY: She is with no past smoking or significant alcohol intake history. FAMILY HISTORY: She is not aware of any family history of colon cancer or GI tract malignancy. PHYSICAL EXAMINATION: GENERAL: Reveals a pleasant, overweight white female in no acute distress. VITAL SIGNS: Weight 201 pounds, blood pressure 120/70. HEENT: Unremarkable. Sclerae nonicteric. CHEST: Clear to auscultation. CARDIOVASCULAR: Reveals regular rate and rhythm without murmur, S3, or S4. ABDOMEN: Soft, supple without mass, organomegaly, or tenderness. Bowel sounds positive, no bruits noted. No abdominal pain to palpation. EXTREMITIES: Reveal no cyanosis or clubbing. She has 1+ bilateral edema. ASSESSMENT AND PLAN: The patient is being set up for diagnostic colonoscopy due to positive Cologuard. We discussed statistics in regards to findings of positive Cologuard. After Torsten's dose of aspirin and Plavix, the patient has been instructed to hold the medication until after the procedure. Prep instructions were given. Questions were answered and Dr. Zarco's last office note and electronic medical record was reviewed. I thank you for the referral of this pleasant lady. Job ID: [id number] DocumentID: [id number] Dictated Date: 11/02/2022 14:10:46 Animation Artist Date: 11/02/2022 14:39:00 Dictated By: NANCY DOZIER MD <Dictated by NANCY DOZIER MD> <Electronically signed by NANCY DOZIER MD> 11/03/22 [id number] MTDD
== END 2022-11-10 12:08 | disposition home or self-care (01) ==
LOC: ENDO 09:18
PROVIDERS: ATTEND Internal Medicine
DX: D12.3 Benign neoplasm of transverse colon (principal); R19.5 Other fecal abnormalities; Z87.891 Personal history of nicotine dependence
CPT/HCPCS: 88305